=== PATIENT | male | born 1985 | race Caucasian/White ===

== ENCOUNTER 2017-08-28 14:26 | Emergency (ER) | payer SELFPAY ==
[~2017-08-28] VITALS: Ht 180.3 cm; Wt 90.7 kg
[2017-08-28 14:54] VITALS: BP 126/80
--- NOTE | 2017-08-28 15:26 | PHYS DOC ---
Past History Past Medical History: No Pertinent History Past Surgical History: No Surgical History Smoking: Cigarettes Alcohol Use: Heavy Drug Use: Marijuana Adult General Chief Complaint Chief Complaint: UPPER EXTREMITY PAIN HPI HPI 32-year-old right handed male patient with history of alcoholism complaining of constant numbness of volar side of right thumb for the last 3 weeks that gradually extending to his wrist and forearm without injury, neck pain, other focal neuro deficit, headache, chest pain and shortness of breath. Patient states he had fifth of vodka at 3 AM today and admitted to use marijuana. Patient denies using other drugs. Review of Systems Review of Systems Constitutional: Denies fever or chills [] Eyes: Denies change in visual acuity, redness, or eye pain [] HENT: Denies nasal congestion or sore throat [] Respiratory: Denies cough or shortness of breath [] Cardiovascular: No additional information not addressed in HPI [] GI: Denies abdominal pain, nausea, vomiting, bloody stools or diarrhea [] : Denies dysuria or hematuria [] Musculoskeletal: Denies back pain or joint pain [] Integument: Denies rash or skin lesions [] Neurologic: Denies headache, focal weakness, reports sensory changes [] Endocrine: Denies polyuria or polydipsia [] All other systems were reviewed and found to be within normal limits, except as documented in this note. Physical Exam Physical Exam Constitutional: Well developed, well nourished, no acute distress, non-toxic appearance. [] HENT: Normocephalic, atraumatic Eyes: PERRLA, EOMI, conjunctiva normal, no discharge. [] Neck: Normal range of motion, no tenderness, supple, no stridor. [] Cardiovascular:Heart rate regular rhythm, no murmur [] Lungs & Thorax: Bilateral breath sounds clear to auscultation [] Abdomen: Bowel sounds normal, soft, no tenderness, no masses, no pulsatile masses. [] Skin: Warm, dry, no erythema, no rash. [] Back: No tenderness, no CVA tenderness. [] Extremities: No tenderness, no cyanosis, no clubbing, ROM intact, no edema. [] Neurologic: Alert and oriented X 3, normal motor function, subjective paresthesia in volar side of right thumb, no focal deficits noted. [] Psychologic: Affect normal, judgement normal, mood normal. [] Current Patient Data Vital Signs Vital Signs Date Time Temp Pulse Resp B/P (MAP) Pulse Ox O2 Delivery O2 Flow Rate FiO2 08/28/17 14:54 65 18 97 EKG EKG [] Radiology/Procedures Radiology/Procedures [][address] [address] IMAGING REPORT Signed PATIENT: EVANGELINA TREJO ACCOUNT: [id number] : 1985 LOCATION: ER AGE: 32 SEX: M EXAM STATUS: PRE ER ORD. PHYSICIAN: ELISABETH MENDEZ MD REASON: finger numbness PROCEDURE: CT HEAD AND CERVICAL SPINE WO CT head without intravenous contrast History: Right hand and finger numbness for 3 weeks. Comparison: None. Technique: Axial images are obtained of the head from the skull base through the vertex without IV contrast. Exposure: One or more of the following individualized dose reduction techniques were utilized for this examination: 1. Automated exposure control 2. Adjustment of the mA and/or kV according to patient size 3. Use of iterative reconstruction technique Findings: The ventricles are appropriate in size, shape, and location for the patient's age. No obvious intracranial mass, mass-effect, midline shift, hemorrhage or obvious acute infarction is identified. Basilar cisterns are patent. Bone windows demonstrate no acute calvarial abnormality. The visualized paranasal sinuses appear clear. Small high left parietal scalp hematoma is seen. Impression: 1. No acute intracranial process. 2. Small left parietal scalp hematoma. CT cervical spine Comparison: None. Technique: Noncontrast CT of the cervical spine was performed using helical technique. Axial, sagittal, coronal reconstructions were obtained. Exposure: One or more of the following individualized dose reduction techniques were utilized for this examination: 1. Automated exposure control 2. Adjustment of the mA and/or kV according to patient size 3. Use of iterative reconstruction technique Findings: There is no evidence of acute fracture or acute malalignment involving the cervical spine. No prevertebral soft tissue swelling is identified. No significant degeneration is seen. Impression: No evidence of acute traumatic injury involving the cervical spine. Electronically signed by: Anthony Dykes MD (08/28/2017 3:24 PM) [place] [id number] DICTATED AND SIGNED BY: ANTHONY DYKES MD DATE: 08/28/17 1519 CC: ELISABETH MENDEZ MD ~ Course & Med Decision Making Course & Med Decision Making Pertinent Imaging studies reviewed. (See chart for details) Evaluation of patient in ER showed 32-year-old male patient history of alcoholism complaining of constant right thumb numbness for more than 3 weeks. He has subjective numbness of volar side of right thumb. CT head and C-spine was unremarkable. Plan discharge patient home to diagnose of paresthesia related to alcohol abuse and prescription of thiamine. [] Dragon Disclaimer Dragon Disclaimer This electronic medical record was generated, in whole or in part, using a voice recognition dictation system. Departure Departure: Impression: Primary Impression: Paresthesia Additional Impressions: Alcohol abuse Tobacco abuse Tobacco abuse counseling Disposition: 01 HOME, SELF-CARE (At 1555) Condition: STABLE Patient Instructions: Alcohol Problems, Paresthesia, Smoking Cessation, Tips For Success Additional Instructions: Quit drinking alcohol Follow-up with your primary care physician in 5 -7days Return to ER if not getting better Scripts Thiamine Hcl (THIAMINE HCL) 100 Mg Tablet 100 MG PO TID, #100 TAB Prov: ELISABETH MENDEZ MD 08/28/17 Problem Qualifiers ELISABETH MENDEZ MD August 28, 2017 15:26
[2017-08-28] MEDS ORDERED: THIA100T8 PO (15:56)
== END 2017-08-28 16:06 | disposition home or self-care (01) ==
LOC: ER 14:26
DX: R20.2 Paresthesia of skin (principal); F10.20 Alcohol dependence, uncomplicated; F17.210 Nicotine dependence, cigarettes, uncomplicated; F12.10 Cannabis abuse, uncomplicated; Z71.6 Tobacco abuse counseling
CPT/HCPCS: 70450; 72125; 99284-25